=== PATIENT | male | born 1995 | race African-American/Black ===

== ENCOUNTER 2020-09-23 08:18 | Emergency (ER) | payer BC ==
[~2020-09-23] VITALS: Ht 177.8 cm; Wt 81.6 kg
[2020-09-23 08:24] VITALS: Ht 177.8 cm; Wt 81.6 kg
[2020-09-23 09:10] LABS: CALCIUM 8.9 mg/dL (8.5-10.1); CARBON DIOXIDE 28.3 mmol/L (21-32); CHLORIDE SERUM 103 mmol/L (98-107); CREATININE SERUM 1.1 mg/dL (0.7-1.3); GFR1 > 60 mL/min; GLUCOSE SERUM 98 mg/dL (74-106); POTASSIUM SERUM 3.4 mmol/L (3.5-5.1); SODIUM SERUM 138 mmol/L (136-145)
[2020-09-23 09:14] LABS: ALBUMIN 3.8 g/dL (3.4-5.0); ALKALINE PHOSPHATASE 76 U/L (46-116); ALT/SGPT 19 U/L (16-63); AST/SGOT 16 U/L (15-37); BILIRUBIN TOTAL 0.5 mg/dL (0.20-1.00); TOTAL PROTEIN, SERUM 7.2 g/dL (6.4-8.2)
[2020-09-23 09:23] LABS: BASOPHIL % 0.5 % (0-2); PLATELET COUNT 313 x10^3mcL (130-400)
[2020-09-23 12:54] VITALS: BP 144/82
== END 2020-09-23 13:52 | disposition home or self-care (01) ==
LOC: ED 08:18
PROVIDERS: Emergency Medicine
DX: N50.812 Left testicular pain (principal)
CPT/HCPCS: J1885; J2270; J2405